=== PATIENT | male | born 1940 | race Caucasian/White ===

== ENCOUNTER → 2023-08-27 06:34 | Outpatient (REF) | payer MEDICARE, BC, SELFPAY ==
[2023-08-27 09:17] LABS: ALT (SGPT) 15 U/L (0-50); AST (SGOT) 24 U/L (17-59); Albumin 4.4 g/dl (3.5-5.0); Alkaline Phosphatase 116 U/L (38-126); Blood Urea Nitrogen 20 mg/dl (9-20); Calcium 9.9 mg/dl (8.4-10.2); Carbon Dioxide 27 mmol/L (22-30); Chloride 99 mmol/L (98-107); Glucose 101 mg/dl (70-99); HDL Cholesterol 60 mg/dl; LDL Cholesterol, Calculated 40 mg/dl; Potassium 4.3 mmol/L (3.5-5.1); Sodium 138 mmol/L (135-145); Total Bilirubin 0.7 mg/dl (0.2-1.3); Total Cholesterol 119 mg/dl (50-199); Total Protein 7.5 g/dl (6.3-8.2); Triglyceride 99 mg/dl (10-149); Very Low Density Lipoprotein 19 mg/dl (0-30); eGFR > 60.00
== END ==
LOC: REG 06:34
PROVIDERS: ATTENDING PHYSICIAN Internal Medicine Cardiovascular Disease; FAMILY PHYSICIAN Internal Medicine
DX: I10 Essential (primary) hypertension (principal); E78.5 Hyperlipidemia, unspecified
CPT/HCPCS: 36415; 80053; 80061

== ENCOUNTER → 2023-10-15 11:10 | Outpatient (REF) | payer MEDICARE, BC, SELFPAY ==
[2023-10-15 17:02] LABS: Urine Albumin Negative (Neg - Trace); Urine Bilirubin Negative (Negative); Urine Character Clear (Clear); Urine Color Yellow; Urine Glucose Negative (Negative); Urine Ketone Negative (Negative); Urine Leukocyte Negative (Negative); Urine Nitrite Negative (Negative); Urine Occult Blood Negative (Negative); Urine Urobilinogen Negative (Neg - 1+)
== END ==
LOC: CLAB 11:10
PROVIDERS: ATTENDING PHYSICIAN Nurse Practitioner Family
DX: R30.0 Dysuria (principal)
CPT/HCPCS: 81003

== ENCOUNTER → 2023-11-05 12:19 | Outpatient (REF) | payer MEDICARE, BC, SELFPAY ==
[2023-11-05 19:21] LABS: Urine Albumin Negative (Neg - Trace); Urine Bilirubin Negative (Negative); Urine Character Clear (Clear); Urine Color Yellow; Urine Glucose Negative (Negative); Urine Ketone Negative (Negative); Urine Leukocyte Negative (Negative); Urine Nitrite Negative (Negative); Urine Occult Blood Negative (Negative); Urine Urobilinogen Negative (Neg - 1+)
== END ==
LOC: CLAB 12:19
PROVIDERS: ATTENDING PHYSICIAN Internal Medicine
DX: R30.0 Dysuria (principal)
CPT/HCPCS: 81003; 87086

== ENCOUNTER → 2023-11-10 08:57 | Outpatient (REF) | payer MEDICARE, BC, SELFPAY | LOC: RAD 08:57 | PROVIDERS: ATTENDING PHYSICIAN Internal Medicine | DX: R10.31 Right lower quadrant pain (principal) | CPT/HCPCS: 74177; Q9967 ==

== ENCOUNTER 2023-11-12 09:58 | Emergency (ER) | payer MEDICARE, BC, SELFPAY ==
[2023-11-12 10:06] VITALS: BP 146/67
--- NOTE | 2023-11-12 10:16 | ED.GENMED ---
History of Present Illness
<Laura Fuentes PA-C - Last Filed: 11/12/23 11:40>
General
Chief Complaint: Abdominal Pain
Source: patient and family
Exam Limitations: none
Time Seen by Provider: 11/12/23 10:15
Nursing documentation reviewed up to this point in time: agreed with
Travel History
Have you had any contact with someone who has COVID-19?: No
Do you have any symptoms of coronavirus? Fever > 100 degrees, chills, cough, shortness of breath, sore throat, loss of taste or smell, muscle aches, or headache?: No
History of Present Illness
History of Present Illness:
This is a 82 y/o male with a PMH of aortic stenosis s/p TAVR, HTN, hyperthyroid, CVA, CHF presenting to the emergency department today with right groin pain for the past few months. Patient states that he has not had worsening pain or new symptoms.
Patient denies any nausea, vomiting, abdominal pain. Patient does note burning with urination but is had this for many months and he is being worked up by it by his primary and had recent urinalysis which was negative for any acute infection and he
is going to follow up on this with a urologist. Patient has radiation to the prostate for his prostate cancer in the past. Patient had outpatient CT done 2 days ago for his many months of groin pain which demonstrated a right bowel containing
inguinal hernia with findings that may be seen with strangulation/incarceration. Primary provider saw these findings and sent patient to emergency department for further evaluation
Past History
<Laura Fuentes PA-C - Last Filed: 11/12/23 11:40>
Past History
ED Past Medical History: Arrthythmia, CVA (TIAs), HTN, Valvular disease () and Other (Prostate biopsy)
ED Past Surgical History: Cardiac (TAVR January) and Urological
Social History
Tobacco: Non-smoker
Personal:
Living: with family
Family History
Family History: Other
Review of Systems
<Laura Fuentes PA-C - Last Filed: 11/12/23 11:40>
Review of Systems
All Other Systems: ROS reviewed and negative except as documented in HPI and ROS
Phy Exam
<Laura Fuentes PA-C - Last Filed: 11/12/23 11:40>
Physical Exam
Physical Exam:
Vitals: Patient's vital signs are stable
General: Patient is well-appearing no acute distress
Skin: Warm and dry, no rashes or lesions
Head: Normocephalic, atraumatic
Eyes: Sclera nonicteric
Cardiac: Regular rate and rhythm, no murmurs
Pulm: Normal respiratory effort
Abdomen: No abdominal tenderness to palpation
Genitourinary: No palpable mass felt around the pelvic region. No hernia appreciated within the inguinal canals bilaterally. No penile discharge.
Neuro: CN II-XII intact. No focal neurologic deficits.
Psychiatric: Appropriate mood and affect
Course
<Laura Fuentes PA-C - Last Filed: 11/12/23 11:40>
Orders/Labs/Results
Orders:
Orders
11/12/23 11:05
Complete Blood Count/With Diff Urgent
Comprehensive Metabolic Panel Urgent
Abnormal Lab Results
11/12/23
11:05
RBC 3.61 L 10^6/uL
(4.70-6.10)
Hgb 12.0 L g/dL
(13.0-18.0)
Hct 33.8 L %
(39.0-52.0)
MCH 33.2 H pg
(27.0-31.0)
Absolute Lymphs (auto) 0.6 L 10^3/uL
(1.2-3.4)
Lymphocytes % 10.8 L %
(20.5-51.1)
Monocytes % 11.0 H %
(1.7-9.3)
Sodium 130 L mmol/L
(135-145)
Chloride 93 L mmol/L
(98-107)
Glucose 107 H mg/dl
(70-99)
Alkaline Phosphatase 129 H U/L
(38-126)
11/12/23 11:05
11/12/23 11:05
Vital Signs
Initial and Last Documented VS:
Initial Vital Signs
Temp Pulse Resp BP Pulse Ox
98.6 F 57 16 146/67 97
11/12/23 10:06 11/12/23 10:06 11/12/23 10:06 11/12/23 10:06 11/12/23 10:06
Last Documented Vital Signs
Temp Pulse Resp BP Pulse Ox
98.6 F 57 16 146/67 97
11/12/23 10:06 11/12/23 10:06 11/12/23 10:06 11/12/23 10:06 11/12/23 10:06
lucian;Bernabe Adan, DO - Last Filed: 11/12/23 11:39>
Orders/Labs/Results
Orders:
Orders
11/12/23 11:05
Complete Blood Count/With Diff Urgent
Comprehensive Metabolic Panel Urgent
Abnormal Lab Results
11/12/23
11:05
RBC 3.61 L 10^6/uL
(4.70-6.10)
Hgb 12.0 L g/dL
(13.0-18.0)
Hct 33.8 L %
(39.0-52.0)
MCH 33.2 H pg
(27.0-31.0)
Absolute Lymphs (auto) 0.6 L 10^3/uL
(1.2-3.4)
Lymphocytes % 10.8 L %
(20.5-51.1)
Monocytes % 11.0 H %
(1.7-9.3)
Sodium 130 L mmol/L
(135-145)
Chloride 93 L mmol/L
(98-107)
Glucose 107 H mg/dl
(70-99)
Alkaline Phosphatase 129 H U/L
(38-126)
11/12/23 11:05
11/12/23 11:05
Vital Signs
Initial and Last Documented VS:
Initial Vital Signs
Temp Pulse Resp BP Pulse Ox
98.6 F 57 16 146/67 97
11/12/23 10:06 11/12/23 10:06 11/12/23 10:06 11/12/23 10:06 11/12/23 10:06
Last Documented Vital Signs
Temp Pulse Resp BP Pulse Ox
98.6 F 57 16 146/67 97
11/12/23 10:06 11/12/23 10:06 11/12/23 10:06 11/12/23 10:06 11/12/23 10:06
<Laura Fuentes PA-C - Last Filed: 11/12/23 11:40>
MDM/Problems Addressed
Differential Diagnosis Includes:
ddx include right inguinal hernia, musculoskeletal sprain/strain, UTI
Chronic conditions affecting care: HTN, Cancer and Other (hyperthyroidism, aortic stenosis, GERD)
Acute Exacerbation and/or Progression of Chronic Illness: HTN and Cancer
<DENICE Londono Last Filed: 11/12/23 11:40>
*Critical Care Note
Total Time (30-74mins, 75-104mins- exclusive of procedures): Not Applicable
<DENICE Londono Last Filed: 11/12/23 11:40>
Patient Management
Escalation/DeEscalation of care consider admission/obs:
This is a 82 y/o male with a PMH of aortic stenosis s/p TAVR, HTN, hyperthyroid, CVA, CHF presenting to the emergency department today with right groin pain for the past few months. Patient outpatient CT done which revealed right bowel containing
inguinal hernia with findings concerning for possible strangulation/incarceration. On physical exam, unable to appreciate any hernia. No concern for hernia incarceration or strangulation at this time patient appears comfortable, in no acute
distress, vitals are stable. Spoke to Dr. Ellis, general surgeon on-call went over CT findings with him, he is comfortable with outpatient follow-up. Patient medically stable for discharge.
ED Attending Note
<Laura Fuentes PA-C - Last Filed: 11/12/23 11:40>
-
Portions of this chart may have been created with voice recognition software.� Occasional wrong word or��sound alike� substitutions may have occurred due to the inherent limitations of voice recognition software.
<Bernabe Adan DO - Last Filed: 11/12/23 11:39>
ED Attending Note
Patient seen and examined by attending physician: Yes
I performed the substantive portion of visit, reviewed & personally made and approve the management plan that is documented in note by myself or BRANNON.: Yes
ED Attending Note:
I agreew demetrice Sanchez's note.
Pt presents with concern for incarcerated right inguinal hernia. Pt had a hernia repair in this area a couple years ago. No nausea, vomiting, constipation. No fever or chills.
Abd: soft, non-tender. Right inguinal hernia palpated but reducible. Not particularly tender.
Discharge Plan
Departure
Patient Disposition: Home (Routine Discharge)
Date of Disposition: 11/12/23
Time of Disposition: 11:33
Patient with high blood pressure during this ER visit?: Yes
Condition: Good
Discharge Problem:
Right inguinal hernia
Instructions: Groin Hernia (DC), Abdominal Pain, BLOOD PRESSURE
Prescriptions:
No Action
omeprazole 20 MG capsule,delayed release(DR/EC)
20 mg PO DAILY
aspirin 81 MG tablet,delayed release (DR/EC)
81 mg PO DAILY
simethicone [Gas-X Extra Strength] 125 MG tablet,chewable
1 tab PO BID PRN (Reason: gas) Qty: 0
Sinus Rinse
1 bottle intranasal QPM
fluticasone propionate 1 SPRAY spray,suspension
2 spray intranasal QPM PRN (Reason: Allergies)
Super B Complex
1 tab PO DAILY
methimazole 5 MG tablet
5 mg PO DAILY
metoprolol succinate 25 MG tablet extended release 24 hr
25 mg PO QPM
azelastine 1 SPRAY aerosol,spray
2 spray intranasal PRN PRN (Reason: allergies )
finasteride 5 MG tablet
5 mg PO DAILY
atorvastatin 40 MG tablet
10 mg PO QPM
tamsulosin 0.4 MG capsule
0.4 mg PO QPM
acetaminophen [Tylenol Extra Strength] 500 MG tablet
1,000 mg PO Q6HPRN PRN (Reason: pain)
Align
1 tab PO DAILY
amlodipine 2.5 mg Tablet
2.5 mg PO BID
olmesartan 20 mg Tablet
20 mg PO BID
cholecalciferol (vitamin D3) [Vitamin D3] 25 mcg (1,000 unit) Tablet
50 mcg PO BID
Beano
1 tab PO PRN PRN (Reason: .as directed )
Citrucel
1 tbsp PO BID
Eye Vision Formula 50+
1 tab PO QPM
Miralax
1 tbsp PO DAILY
Referrals:
Fran Ellis MD [Active] - Call in 1-3 days for appt
Kervin Matthews DO [Family Provider] -
Activity Restrictions/Additional Instructions:
Please call the referral number attached to schedule a follow-up appointment with the general surgeon's office.
PLEASE RETURN TO THE EMERGENCY DEPARTMENT SHOULD YOU DEVELOP FEVERS OR CHILLS, NAUSEA, OR VOMITING, ACUTE WORSENING OF YOUR PAIN, CHEST PAIN, SHORTNESS OF BREATH, SYNCOPAL EPISODES, DIZZINESS, OR ANY OTHER CONCERNING SIGNS OR SYMPTOMS.
Interventions
Interventions:
*Risk Screen - Suicide Last Done: 11/12/23 10:15
*General Assessment Last Done: 11/12/23 10:14
*Neglect/Abuse Screening Last Done: 11/12/23 10:14
*ED COVID-19 Vaccine History Last Done: 11/12/23 10:06
GK-Eqafgi-Yujebptwvg Assessment Last Done: 11/12/23 10:22
Discharge Date and Time
Print Language: SERBIAN
[2023-11-12 10:22] VITALS: BMI 24.4
[2023-11-12 11:23] LABS: % Basophils 0.9 % (0-2); % Eosinophils 5.8 % (0-6); % Immature Granulocytes 0.3 % (0-0.5); % Lymphocytes 10.8 % (20.5-51.1); % Neutrophils 71.2 % (42.2-75.2); Absolute Basophils 0.1 10^3/uL (0-0.2); Absolute Eosinophils 0.3 10^3/uL (0-0.7); Absolute Lymphocytes 0.6 10^3/uL (1.2-3.4); Absolute Monocytes 0.6 10^3/uL (0.1-0.6); Absolute Neutrophils 4.1 10^3/uL (1.4-6.5); Hematocrit 33.8 % (39.0-52.0); Mean Corp Hgb Conc. 35.5 g/dL (33.0-37.0); Mean Corpuscular Hgb 33.2 pg (27.0-31.0); Mean Corpuscular Volume 93.6 fL (80.0-94.0); Mean Platelet Volume 8.6 fL (7.4-10.4); Nucleated Red Blood Cells % 0 % (-); Platelet Count 203 10^3/uL (130-400); Red Blood Cell Count 3.61 10^6/uL (4.70-6.10); Red Cell Dist. Width 11.9 % (11.5-14.5); White Blood Cell Count 5.7 10^3/uL (4.8-10.8)
[2023-11-12 11:33] LABS: ALT (SGPT) 11 U/L (0-50); AST (SGOT) 23 U/L (17-59); Albumin 4.3 g/dl (3.5-5.0); Alkaline Phosphatase 129 U/L (38-126); Blood Urea Nitrogen 20 mg/dl (9-20); Calcium 9.4 mg/dl (8.4-10.2); Carbon Dioxide 27 mmol/L (22-30); Chloride 93 mmol/L (98-107); Estimated Creatinine Clearance 55 ml/min; Glucose 107 mg/dl (70-99); Potassium 4.4 mmol/L (3.5-5.1); Sodium 130 mmol/L (135-145); Total Bilirubin 0.6 mg/dl (0.2-1.3); Total Protein 7.1 g/dl (6.3-8.2); eGFR > 60.00
== END 2023-11-12 12:21 | disposition home or self-care (01) ==
LOC: EMR 09:58
PROVIDERS: Physician Assistant; EMERGENCY PHYSICIAN Emergency Medicine; FAMILY PHYSICIAN Internal Medicine
DX: K40.90 Unilateral inguinal hernia, without obstruction or gangrene, not specified as recurrent (principal); I11.0 Hypertensive heart disease with heart failure; I50.9 Heart failure, unspecified; E05.90 Thyrotoxicosis, unspecified without thyrotoxic crisis or storm; I35.0 Nonrheumatic aortic (valve) stenosis
CPT/HCPCS: 99283; 80053; 85025

== ENCOUNTER → 2023-11-18 08:36 | Outpatient (REF) | payer MEDICARE, BC, SELFPAY | LOC: RAD 08:36 | PROVIDERS: ATTENDING PHYSICIAN Otolaryngology Facial Plastic Surgery; FAMILY PHYSICIAN Internal Medicine | DX: R13.12 Dysphagia, oropharyngeal phase (principal); M79.2 Neuralgia and neuritis, unspecified | CPT/HCPCS: 74221 ==

== ENCOUNTER → 2023-11-27 06:37 | Outpatient (REF) | payer MEDICARE, BC, SELFPAY ==
[2023-11-27 07:03] LABS: % Basophils 1.4 % (0-2); % Eosinophils 7.7 % (0-6); % Immature Granulocytes 0.4 % (0-0.5); % Lymphocytes 18.5 % (20.5-51.1); % Monocytes 13.6 % (1.7-9.3); % Neutrophils 58.4 % (42.2-75.2); Absolute Basophils 0.1 10^3/uL (0-0.2); Absolute Eosinophils 0.4 10^3/uL (0-0.7); Absolute Lymphocytes 0.9 10^3/uL (1.2-3.4); Absolute Monocytes 0.7 10^3/uL (0.1-0.6); Absolute Neutrophils 2.9 10^3/uL (1.4-6.5); Hematocrit 35.4 % (39.0-52.0); Hemoglobin 12.2 g/dL (13.0-18.0); Mean Corp Hgb Conc. 34.5 g/dL (33.0-37.0); Mean Corpuscular Hgb 32.8 pg (27.0-31.0); Mean Corpuscular Volume 95.2 fL (80.0-94.0); Mean Platelet Volume 8.6 fL (7.4-10.4); Nucleated Red Blood Cells % 0 % (-); Platelet Count 204 10^3/uL (130-400); Red Blood Cell Count 3.72 10^6/uL (4.70-6.10); Red Cell Dist. Width 11.9 % (11.5-14.5); White Blood Cell Count 4.9 10^3/uL (4.8-10.8)
[2023-11-27 07:35] LABS: ALT (SGPT) 14 U/L (0-50); AST (SGOT) 25 U/L (17-59); Albumin 4.6 g/dl (3.5-5.0); Alkaline Phosphatase 138 U/L (38-126); Blood Urea Nitrogen 19 mg/dl (9-20); Calcium 9.8 mg/dl (8.4-10.2); Carbon Dioxide 29 mmol/L (22-30); Chloride 97 mmol/L (98-107); Creatine Phosphokinase 67 U/L (55-170); Glucose 105 mg/dl (70-99); HDL Cholesterol 67 mg/dl; LDL Cholesterol, Calculated 35 mg/dl; Potassium 4.4 mmol/L (3.5-5.1); Sodium 133 mmol/L (135-145); Total Bilirubin 0.6 mg/dl (0.2-1.3); Total Cholesterol 118 mg/dl (50-199); Total Protein 7.7 g/dl (6.3-8.2); Triglyceride 83 mg/dl (10-149); Very Low Density Lipoprotein 16 mg/dl (0-30); eGFR > 60.00
[2023-11-27 07:52] LABS: Free T4 1.12 ng/dl (0.78-2.19)
[2023-11-27 07:53] LABS: Free T3 3.38 pg/ml (2.77-5.27)
[2023-11-27 08:06] LABS: PSA, Total - Diagnostic < 0.06 ng/ml (0.0-4.0); TSH 1.58 uIU/ml (0.47-4.68)
== END ==
LOC: REG 06:37
PROVIDERS: ATTENDING PHYSICIAN Internal Medicine Endocrinology, Diabetes & Metabolism; FAMILY PHYSICIAN Internal Medicine
DX: C61 Malignant neoplasm of prostate (principal); Z86.73 Personal history of transient ischemic attack (TIA), and cerebral infarction without residual deficits; E78.2 Mixed hyperlipidemia; K58.9 Irritable bowel syndrome, unspecified; E05.90 Thyrotoxicosis, unspecified without thyrotoxic crisis or storm; E04.2 Nontoxic multinodular goiter
CPT/HCPCS: 36415; 80053; 80061; 82550; 84153; 84439; 84443; 84481; 85025

== ENCOUNTER → 2023-12-23 07:43 | Outpatient (REF) | payer MEDICARE, BC, SELFPAY | LOC: RAD 07:43 | PROVIDERS: ATTENDING PHYSICIAN Internal Medicine | DX: M85.89 Other specified disorders of bone density and structure, multiple sites (principal) | CPT/HCPCS: 77080 ==

== ENCOUNTER → 2024-01-21 06:21 | Outpatient (REF) | payer MEDICARE, BC, SELFPAY ==
[2024-01-21 08:50] LABS: Hemoglobin 12.7 g/dL (13.0-18.0); Mean Corp Hgb Conc. 33.4 g/dL (33.0-37.0); Mean Corpuscular Volume 95.7 fL (80.0-94.0); Mean Platelet Volume 9.1 fL (7.4-10.4); Platelet Count 222 10^3/uL (130-400); Red Blood Cell Count 3.97 10^6/uL (4.70-6.10); Red Cell Dist. Width 12.3 % (11.5-14.5); White Blood Cell Count 5.4 10^3/uL (4.8-10.8)
[2024-01-21 09:39] LABS: Blood Urea Nitrogen 20 mg/dl (9-20); Calcium 9.8 mg/dl (8.4-10.2); Carbon Dioxide 27 mmol/L (22-30); Chloride 97 mmol/L (98-107); Glucose 89 mg/dl (70-99); Potassium 4.7 mmol/L (3.5-5.1); Sodium 135 mmol/L (135-145); eGFR > 60.00
== END ==
LOC: SDSPAT 06:21
PROVIDERS: ATTENDING PHYSICIAN Surgery; FAMILY PHYSICIAN Internal Medicine
DX: Z01.818 Encounter for other preprocedural examination (principal)
CPT/HCPCS: 36415; 80048; 85027

== ENCOUNTER 2024-02-02 06:33 | Day surgery (SDC) | payer MEDICARE, BC, SELFPAY ==
[2024-01-21 06:32] VITALS: BMI 26.8
[2024-02-02] VITALS (11 sets, daily range): BP systolic 118–150; BP diastolic 57–72; BMI 26.8
[2024-02-02] MEDS: TYLENOL 1000 MG PO (11:03)
[2024-02-02] MEDS: NORMOSOL-R/PLASMALYTE-A 1000 IV (11:13)
--- NOTE | 2024-02-02 13:07 | HP.FOC2 ---
Focused History & Physical
Chief Complaint
HPI:
Chief Complaint: Recurrent right inguinal swelling
HPI / Indication for Planned Procedure: Patient is an 83-year-old male recently seen in outpatient surgical evaluation secondary to history of right inguinal swelling. He previously underwent open right inguinal herniorrhaphy with mesh in March
2020 with a large Ethicon Prolene hernia system mesh repair. About a year after his surgery he began taking note of right inguinal swelling which has progressively enlarged and is now quite symptomatic for him. Physical examination confirmed the
presence of a readily apparent and protuberant right inguinal hernia which is reducible in the supine position. Suspected left inguinal hernia noted as well. Recent CT imaging also appears to show bilateral direct inguinal hernias. He presents
today for scheduled operative correction.
Relevant Past Medical History: Other (History of hiatal hernia, PUD, diverticulosis, enlarged prostate, thyroid nodules, hypothyroidism, GERD, history of prostate cancer status postradiation, history of now status post TAVR are, hypertension,
CVA, chronic constipation, compression fractures)
Relevant Social History: Negative
Relevant Family History: Negative
Relevant Past Surgical History: Positive for (Repair left ankle, left trigger finger, prostate biopsies, cataracts, right salivary gland removed, TAVR, open right inguinal hernia repair, Mohs)
Review of Systems
Review of Pertinent Systems: All Systems Negative
Medication
See Medication form for detailed medications: Yes
Medication List (including Herbals & OTC):
aspirin 81 mg tablet,delayed release 81 mg PO DAILY Blood clot prevention/tx 01/31/20
omeprazole 20 mg capsule,delayed release 20 mg PO DAILY Gastrointestinal issue 01/31/20
Sinus Rinse 1 bottle intranasal QPM 02/21/20
Super B Complex 1 tab PO DAILY Supplement 02/21/20
fluticasone propionate 50 mcg/actuation nasal spray,suspension 2 spray intranasal QPM PRN Allergies 02/21/20
simethicone 125 mg chewable tablet (Gas-X Extra Strength) 1 tab PO BID PRN gas ##0 02/21/20
atorvastatin 40 mg tablet 10 mg PO QPM 11/07/20
azelastine 137 mcg (0.1 %) nasal spray 2 spray intranasal PRN PRN allergies 11/07/20
finasteride 5 mg tablet 5 mg PO DAILY 11/07/20
methimazole 5 mg tablet 5 mg PO DAILY 11/07/20
metoprolol succinate 25 mg tablet,extended release 24 hr 25 mg PO QPM 11/07/20
tamsulosin 0.4 mg capsule 0.4 mg PO BID 11/07/20
acetaminophen 500 mg tablet (Tylenol Extra Strength) 1,000 mg PO Q6HPRN PRN pain 04/19/21
Align 1 tab PO DAILY 11/12/23
Beano 1 tab PO PRN PRN .as directed 11/12/23
Citrucel 1 tbsp PO BID 11/12/23
Eye Vision Formula 50+ 1 tab PO QPM 11/12/23
Miralax 1 tbsp PO DAILY 11/12/23
amlodipine 2.5 mg tablet 2.5 mg PO BID 11/12/23
cholecalciferol (vitamin D3) 25 mcg (1,000 unit) tablet (Vitamin D3) 25 mcg PO BID 11/12/23
olmesartan 20 mg tablet 20 mg PO BID 11/12/23
desonide 0.05 % topical ointment 1 applic topical BID PRN skin irritation 01/23/24
hydrocortisone 2.5 % topical cream 1 applic topical BID PRN hemorrhoids 01/23/24
Medications Reviewed: Yes
Allergies and Reactions
Patient has Allergies: Yes
Noted Allergies and Reactions:
Allergy/AdvReac Type Severity Reaction Status Date / Time
pollen extracts Allergy congestion Verified 02/02/24 10:43
in
sinuses;sneezing
Pertinent Physical Exam
All Other Systems: Negative
Head/Neck: Normal
Lungs: Normal
Heart: Normal
Abdomen: Other (Bilateral inguinal hernias, right inguinal scar)
Extremities: Normal
Neurological: Normal
Diagnosis / Assessment
83-year-old male presenting for scheduled operative correction recurrent right inguinal hernia and initial left inguinal hernia.
Plan / Procedure
Robotic assisted laparoscopic repair of bilateral inguinal hernias with mesh
Anesthesia/Sedation to be done by Anesthesia Provider: Yes
--- NOTE | 2024-02-02 13:12 | W.SUR.PREOP ---
Pre-Operative Surgical Note
-
I have examined this patient prior to the performance of the scheduled procedure.
The patient's condition is unchanged from the time of the current History and
Physical and the patient is able to undergo the scheduled procedure.
--- NOTE | 2024-02-02 16:04 | W.IMMPOSTOP ---
Addendum entered and electronically signed by Carlos Owens MD 02/04/24 09:47:
#[id number]
Original Note:
Surgical Immed Post Op Note
-
Primary Surgeon: Graciela
Assisting Surgeon: Meryl Leos PA-c
Pre-op Diagnosis: Bilateral inguinal hernias
Post-op Diagnosis: Bilateral inguinal hernias; right recurrent direct, left direct
Procedure Performed: RAL YULIYA repair bilateral inguinal hernias with mesh; 3D max large regular weight x 2
Anesthesia Type: GETA +0.25% Marcaine
Specimen / Cultures: None
Estimated Blood Loss: 6 mL
Complications: None immediate
Operative Findings: Recurrent right direct inguinal hernia. Preperitoneal portion of previously placed PHS-L mesh covering indirect but not direct space -did not disturb this mesh. 3D max regular weight large mesh repair. Left direct inguinal
hernia. 3D max regular weight large mesh repair. No additional notable intra-abdominal findings.
The assistance of Meryl Leos PA-C was required due to the complexity of the procedure. During the procedure Meryl Leos PA-C assisted with port placement, robotic instrumentation and suture material exchanges, and closure of the surgical incision
sites. I was present for the entirety of the operative procedure.
[2024-02-02] MEDS: DILAUDID 0.25 MG IV (16:48)
--- NOTE | 2024-02-02 17:27 | SUR.PHASEI ---
patient with minimal pain in pacu - treated with Dilaudid 0.25mg with relief, vss, Sats good in pacu - patient normally wears CPAP at night - encouraged to use CPAP with any rest periods tonight.
== END 2024-02-02 17:49 | disposition home or self-care (01) ==
LOC: SDS 06:33
PROVIDERS: ATTENDING PHYSICIAN Surgery
DX: K40.91 Unilateral inguinal hernia, without obstruction or gangrene, recurrent (principal); K40.90 Unilateral inguinal hernia, without obstruction or gangrene, not specified as recurrent
CPT/HCPCS: 49651; 49650; C1781

== ENCOUNTER → 2024-02-13 06:27 | Outpatient (REF) | payer MEDICARE, BC, SELFPAY ==
[2024-02-13 08:15] LABS: Vitamin D, 25-OH*** 76.8 ng/mL (30-80)
[2024-02-13 08:19] LABS: Calcium 9.6 mg/dl (8.4-10.2); Phosphorus 3.9 mg/dl (2.5-4.5)
[2024-02-13 09:31] LABS: 24 Hour Urine Total Volume 2000 ml; Urine Calcium 10.3 mg/dl
[2024-02-14 08:56] LABS: Intact PTH 21.4 pg/ml (13.6-85.8)
[2024-02-15 02:00] LABS: % Free Testosterone 0.8 % (1.6-2.9); Free Testosterone 11 pg/mL (47-244); Sex Hormone Binding Globulin 96 nmol/L (19-76); Total Testosterone 138 ng/dL (300-720)
[2024-02-16 02:01] LABS: IgA 495 mg/dl (70-400)
[2024-02-16 06:52] LABS: Endomysial IgA Antibody Titer <1:10 (<1:10)
[2024-02-16 09:41] LABS: 24 Hour Urine Total Volume 2000 mL; Creatinine, Urine 24 Hour 1300 mg/d (600-2000); Creatinine, Urine per Volume 65 mg/dL; Urine Collection Length 24 hr
== END ==
LOC: REG 06:27
PROVIDERS: ATTENDING PHYSICIAN Physician Assistant; FAMILY PHYSICIAN Internal Medicine
DX: C61 Malignant neoplasm of prostate (principal); E21.5 Disorder of parathyroid gland, unspecified; E27.8 Other specified disorders of adrenal gland; E55.9 Vitamin D deficiency, unspecified; E83.30 Disorder of phosphorus metabolism, unspecified; K90.0 Celiac disease; M81.0 Age-related osteoporosis without current pathological fracture; R82.994 Hypercalciuria; S22.000A Wedge compression fracture of unspecified thoracic vertebra, initial encounter for closed fracture
CPT/HCPCS: 36415; 81050; 82306; 82340; 82530; 82784; 83516; 83970; 84100; 84155; 84165; 84270; 84402; 84403; 86231

== ENCOUNTER → 2024-05-26 06:52 | Outpatient (REF) | payer MEDICARE, BC, SELFPAY ==
[2024-05-26 08:00] LABS: % Basophils 1.2 % (0-2); % Eosinophils 9.6 % (0-6); % Immature Granulocytes 0.2 % (0-0.5); % Lymphocytes 18.7 % (20.5-51.1); % Monocytes 11.1 % (1.7-9.3); % Neutrophils 59.2 % (42.2-75.2); Absolute Basophils 0.1 10^3/uL (0-0.2); Absolute Eosinophils 0.6 10^3/uL (0-0.7); Absolute Lymphocytes 1.1 10^3/uL (1.2-3.4); Absolute Monocytes 0.7 10^3/uL (0.1-0.6); Absolute Neutrophils 3.5 10^3/uL (1.4-6.5); Hematocrit 36.1 % (39.0-52.0); Hemoglobin 12.2 g/dL (13.0-18.0); Mean Corp Hgb Conc. 33.8 g/dL (33.0-37.0); Mean Corpuscular Hgb 31.7 pg (27.0-31.0); Mean Corpuscular Volume 93.8 fL (80.0-94.0); Mean Platelet Volume 8.8 fL (7.4-10.4); Nucleated Red Blood Cells % 0 % (-); Platelet Count 248 10^3/uL (130-400); Red Blood Cell Count 3.85 10^6/uL (4.70-6.10); Red Cell Dist. Width 12.8 % (11.5-14.5); White Blood Cell Count 5.9 10^3/uL (4.8-10.8)
[2024-05-26 08:07] LABS: Urine Albumin Negative (Neg - Trace); Urine Bilirubin Negative (Negative); Urine Character Clear (Clear); Urine Color Yellow; Urine Glucose Negative (Negative); Urine Ketone Negative (Negative); Urine Leukocyte Negative (Negative); Urine Nitrite Negative (Negative); Urine Occult Blood Negative (Negative); Urine Urobilinogen Negative (Neg - 1+)
[2024-05-26 08:34] LABS: ALT (SGPT) 14 U/L (0-50); AST (SGOT) 24 U/L (17-59); Albumin 4.7 g/dl (3.5-5.0); Alkaline Phosphatase 127 U/L (38-126); Blood Urea Nitrogen 19 mg/dl (9-20); Calcium 9.3 mg/dl (8.4-10.2); Carbon Dioxide 28 mmol/L (22-30); Chloride 98 mmol/L (98-107); Glucose 105 mg/dl (70-99); HDL Cholesterol 73 mg/dl; LDL Cholesterol, Calculated 35 mg/dl; Sodium 137 mmol/L (135-145); Total Bilirubin 0.4 mg/dl (0.2-1.3); Total Cholesterol 128 mg/dl (50-199); Total Protein 7.5 g/dl (6.3-8.2); Triglyceride 101 mg/dl (10-149); Very Low Density Lipoprotein 20 mg/dl (0-30); eGFR > 60.00
[2024-05-26 08:45] LABS: Free T4 0.99 ng/dl (0.78-2.19); Vitamin D, 25-OH*** 73.3 ng/mL (30-80)
[2024-05-26 08:59] LABS: PSA, Total - Diagnostic < 0.06 ng/ml (0.0-4.0); TSH 3.15 uIU/ml (0.47-4.68)
[2024-05-26 09:27] LABS: Glycohemoglobin (HgbA1c) 5.9 % (4.0-5.6)
== END ==
LOC: RAD 06:52
PROVIDERS: ATTENDING PHYSICIAN Nurse Practitioner Adult Health; FAMILY PHYSICIAN Internal Medicine; REFERRING PHYSICIAN Family Medicine Geriatric Medicine
DX: R91.8 Other nonspecific abnormal finding of lung field (principal); Z79.899 Other long term (current) drug therapy; R74.8 Abnormal levels of other serum enzymes; E87.8 Other disorders of electrolyte and fluid balance, not elsewhere classified; R79.89 Other specified abnormal findings of blood chemistry; M81.0 Age-related osteoporosis without current pathological fracture; E05.90 Thyrotoxicosis, unspecified without thyrotoxic crisis or storm; I10 Essential (primary) hypertension; E78.2 Mixed hyperlipidemia; C61 Malignant neoplasm of prostate
CPT/HCPCS: 36415; 71250; 80053; 80061; 81003; 82306; 83036; 84153; 84439; 84443; 85025

== ENCOUNTER → 2024-08-19 06:19 | Outpatient (REF) | payer MEDICARE, BC, SELFPAY ==
[2024-08-19 07:38] LABS: ALT (SGPT) 14 U/L (0-50); AST (SGOT) 23 U/L (17-59); Albumin 4.5 g/dl (3.5-5.0); Alkaline Phosphatase 101 U/L (38-126); Blood Urea Nitrogen 19 mg/dl (9-20); Calcium 9.6 mg/dl (8.4-10.2); Carbon Dioxide 30 mmol/L (22-30); Chloride 97 mmol/L (98-107); Glucose 100 mg/dl (70-99); Potassium 4.3 mmol/L (3.5-5.1); Sodium 133 mmol/L (135-145); Total Bilirubin 0.4 mg/dl (0.2-1.3); Total Protein 7.5 g/dl (6.3-8.2); eGFR > 60.00
== END ==
LOC: REG 06:19
PROVIDERS: ATTENDING PHYSICIAN Internal Medicine; FAMILY PHYSICIAN Internal Medicine
DX: E55.9 Vitamin D deficiency, unspecified (principal); M81.0 Age-related osteoporosis without current pathological fracture
CPT/HCPCS: 36415; 80053; 82306

== ENCOUNTER → 2024-09-22 06:49 | Outpatient (REF) | payer MEDICARE, BC, SELFPAY | LOC: RAD 06:49 | PROVIDERS: ATTENDING PHYSICIAN Internal Medicine | DX: R10.31 Right lower quadrant pain (principal) | CPT/HCPCS: 74177; Q9967 ==

== ENCOUNTER 2024-11-15 06:35 | Outpatient (RCR) | payer MEDICARE, BC, SELFPAY | END 2024-11-15 23:59 | disposition home or self-care (01) | LOC: RST 06:35 | PROVIDERS: ATTENDING PHYSICIAN Otolaryngology Facial Plastic Surgery; FAMILY PHYSICIAN Family Medicine | DX: R13.12 Dysphagia, oropharyngeal phase (principal) | CPT/HCPCS: 92610 ==

== ENCOUNTER → 2024-11-29 06:39 | Outpatient (REF) | payer MEDICARE, BC, SELFPAY ==
[2024-11-29 08:31] LABS: Urine Albumin Negative (Neg - Trace); Urine Bilirubin Negative (Negative); Urine Character Clear (Clear); Urine Color Yellow; Urine Glucose Negative (Negative); Urine Ketone Negative (Negative); Urine Leukocyte Negative (Negative); Urine Nitrite Negative (Negative); Urine Occult Blood Negative (Negative); Urine Urobilinogen Negative (Neg - 1+)
[2024-11-29 08:48] LABS: % Eosinophils 7.3 % (0-6); % Immature Granulocytes 0.4 % (0-0.5); % Lymphocytes 20.9 % (20.5-51.1); % Monocytes 14.8 % (1.7-9.3); % Neutrophils 55.6 % (42.2-75.2); Absolute Basophils 0.1 10^3/uL (0-0.2); Absolute Eosinophils 0.4 10^3/uL (0-0.7); Absolute Monocytes 0.7 10^3/uL (0.1-0.6); Absolute Neutrophils 2.8 10^3/uL (1.4-6.5); Hematocrit 35.7 % (39.0-52.0); Hemoglobin 12.4 g/dL (13.0-18.0); Mean Corp Hgb Conc. 34.7 g/dL (33.0-37.0); Mean Corpuscular Hgb 33.5 pg (27.0-31.0); Mean Corpuscular Volume 96.5 fL (80.0-94.0); Mean Platelet Volume 9.2 fL (7.4-10.4); Nucleated Red Blood Cells % 0 % (-); Platelet Count 239 10^3/uL (130-400); Red Cell Dist. Width 12.8 % (11.5-14.5); White Blood Cell Count 4.9 10^3/uL (4.8-10.8)
[2024-11-29 09:09] LABS: ALT (SGPT) 15 U/L (0-50); AST (SGOT) 23 U/L (17-59); Albumin 4.5 g/dl (3.5-5.0); Alkaline Phosphatase 91 U/L (38-126); Blood Urea Nitrogen 19 mg/dl (9-20); Calcium 9.7 mg/dl (8.4-10.2); Carbon Dioxide 28 mmol/L (22-30); Chloride 101 mmol/L (98-107); Glucose 101 mg/dl (70-99); HDL Cholesterol 72 mg/dl; LDL Cholesterol, Calculated 48 mg/dl; Phosphorus 3.6 mg/dl (2.5-4.5); Potassium 4.4 mmol/L (3.5-5.1); Sodium 139 mmol/L (135-145); Total Bilirubin 0.6 mg/dl (0.2-1.3); Total Cholesterol 141 mg/dl (50-199); Total Protein 7.6 g/dl (6.3-8.2); Triglyceride 106 mg/dl (10-149); Very Low Density Lipoprotein 21 mg/dl (0-30); eGFR > 60.00
[2024-11-29 09:21] LABS: Free T3 3.65 pg/ml (2.77-5.27)
[2024-11-29 09:34] LABS: TSH Reflex To Free T4 2.02 uIU/ml (0.47-4.68)
== END ==
LOC: REG 06:39
PROVIDERS: ATTENDING PHYSICIAN Internal Medicine Endocrinology, Diabetes & Metabolism; FAMILY PHYSICIAN Internal Medicine
DX: E05.90 Thyrotoxicosis, unspecified without thyrotoxic crisis or storm (principal); I10 Essential (primary) hypertension; E78.5 Hyperlipidemia, unspecified; I35.0 Nonrheumatic aortic (valve) stenosis; Z00.00 Encounter for general adult medical examination without abnormal findings
CPT/HCPCS: 36415; 80053; 80061; 81003; 84100; 84443; 84481; 85025

== ENCOUNTER → 2024-12-09 08:16 | Outpatient (REF) | payer MEDICARE, BC, SELFPAY | LOC: HWRCS 08:16 | PROVIDERS: ATTENDING PHYSICIAN Internal Medicine Cardiovascular Disease; FAMILY PHYSICIAN Internal Medicine | DX: Z95.2 Presence of prosthetic heart valve (principal); I10 Essential (primary) hypertension; R00.2 Palpitations | CPT/HCPCS: 93306 ==

== ENCOUNTER → 2025-02-08 06:28 | Outpatient (REF) | payer MEDICARE, BC, SELFPAY ==
[2025-02-08 07:47] LABS: ALT (SGPT) 14 U/L (0-50); AST (SGOT) 19 U/L (17-59); Albumin 4.6 g/dl (3.5-5.0); Alkaline Phosphatase 95 U/L (38-126); Blood Urea Nitrogen 16 mg/dl (9-20); Calcium 9.5 mg/dl (8.4-10.2); Carbon Dioxide 27 mmol/L (22-30); Chloride 105 mmol/L (98-107); Glucose 105 mg/dl (70-99); Potassium 4.4 mmol/L (3.5-5.1); Sodium 139 mmol/L (135-145); Total Protein 7.6 g/dl (6.3-8.2); eGFR > 60.00
== END ==
LOC: REG 06:28
PROVIDERS: ATTENDING PHYSICIAN Internal Medicine Rheumatology; FAMILY PHYSICIAN Internal Medicine
DX: M81.0 Age-related osteoporosis without current pathological fracture (principal)
CPT/HCPCS: 36415; 80053

== ENCOUNTER 2025-04-04 04:16 | Emergency (ER) | payer MEDICARE, BC, SELFPAY ==
[2025-04-04 04:19] VITALS: BP 164/76
[2025-04-04 04:46] VITALS: BP 158/81; BMI 26.4
--- NOTE | 2025-04-04 04:49 | ED.GENMED ---
History of Present Illness
General
Chief Complaint: Heart Rate Problem
Source: patient, spouse, previous radiology exam and previous hospital records
Exam Limitations: none
Time Seen by Provider: 04/04/25 04:33
Nursing documentation reviewed up to this point in time: agreed with
History of Present Illness
History of Present Illness:
The patient is an 84-year-old male who presented with complaints of irregular heartbeat primarily noticed at night. The patient described the sensation as a heart racing or skipping beats, which was particularly worse the previous night. He reported
experiencing episodes of heart palpitations at night several times in the past and was evaluated by a spine surgeon, Dr. Barcenas, around October. At that time, an event monitor was worn for a week, but no significant findings were reported by the
spine surgeon. Echocardiogram November of this year, normal LV chamber size, normal LV function with EF of 60%. Mild to moderate MR. Well-seated aortic valve replacement. No aortic regurgitation. Similar and unchanged from previous September 2022.
The patient continues to experience these irregular heartbeats more prominently at night, although they occur throughout the day without him being aware. He denies any associated chest pain or shortness of breath. There are no recent changes in
medication or diagnosis of new conditions.
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 Hyperthyroidism, managed
with regular monitoring by Dr. López. The patient has undergone thyroid function tests in November with results reported as normal. He has history of 'chronic congestion' maintained on twice daily inhaler. No history of CHF. No change in weight.
He denies leg pain or swelling.
Along with intermittent palpitations tonight patient noted elevated blood pressure with systolic of 180, improved to 170 and then 160 prior to arrival. He denies headache, no dizziness nor lightheadedness, no weakness. No recent change in
medications.
Currently asymptomatic. No palpitations.
Past History
Past History
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
Hyperthyroidism and Other (Obstructive sleep apnea-uses CPAP)
ED Past Surgical History: Cardiac (TAVR January) and Urological
Social History
Tobacco: Former smoker
Alcohol: None
Drug: None
Personal:
Living: with family
Employment: Retired
Family History
Family History: Other (Noncontributory)
Phy Exam
Physical Exam
Physical Exam:
GENERAL: 84-year-old gentleman appears his stated age, awake and alert, pleasant, appears in no acute distress. is accompanying.
EYE: anicteric
NECK: Supple, nontender, no meningismus, no significant adenopathy. No JVD.
ENT: oral mucosa is moist. No rhinorrhea.
CARDIAC: Regular rate and rhythm. Occasional ectopy, no murmur.
LUNGS: Clear breath sounds bilaterally, no acute respiratory distress, no wheezes/rales/rhonchi
ABDOMEN: Soft, nondistended, without focal tenderness, normoactive BS.
NEUROLOGICAL: Alert and oriented x3, no focal neuro deficits.
SKIN: Warm and dry, normal color, skin intact. No rash.
MUSCULOSKELETAL: No C/C/E. peripheral pulses are full and equal b/l. No palpable tenderness.
PSYCH: Normal and appropriate interaction.
Course
Orders/Labs/Results
Orders:
Orders
04/04/25 04:27
Electrocardiogram (*1) Urgent
Reason for Study: Palpitations
EKG- Treatment ONCE
04/04/25 04:44
Complete Blood Count/With Diff Urgent
Comprehensive Metabolic Panel Urgent
TSH Reflex To Free T4 Urgent
Troponin I Urgent
Abnormal Lab Results
04/04/25
04:44
RBC 3.78 L 10^6/uL
(4.70-6.10)
Hgb 12.3 L g/dL
(13.0-18.0)
Hct 35.8 L %
(39.0-52.0)
MCV 94.7 H fL
(80.0-94.0)
MCH 32.5 H pg
(27.0-31.0)
Absolute Lymphs (auto) 1.1 L 10^3/uL
(1.2-3.4)
Monocytes % 12.0 H %
(1.7-9.3)
Eosinophils % 9.9 H %
(0-6)
Glucose 107 H mg/dl
(70-99)
04/04/25 04:44
04/04/25 04:44
Vital Signs
Initial and Last Documented VS:
Initial Vital Signs
Temp Pulse Resp BP Pulse Ox
98.4 F 63 20 164/76 96
04/04/25 04:19 04/04/25 04:19 04/04/25 04:19 04/04/25 04:19 04/04/25 04:19
Last Documented Vital Signs
Temp Pulse Resp BP Pulse Ox
98.4 F 59 12 151/77 97
04/04/25 04:19 04/04/25 05:45 04/04/25 05:45 04/04/25 05:00 04/04/25 05:45
MDM/Problems Addressed
Differential Diagnosis Includes:
The Differential Diagnosis includes, in no particular order and is not limited to:
1. Atrial Fibrillation
2. Premature Ventricular Contractions
3. Paroxysmal Supraventricular Tachycardia
4. Sinus Arrhythmia
5. Hyperthyroidism-induced arrhythmias
6. Anxiety or Stress
7. Chronic Obstructive Pulmonary Disease
8. Congestive Heart Failure
9. Ischemic Heart Disease
10. Mitral Valve Prolapse
MDM/Problems Addressed:
Acute Problems:
- Irregular heartbeats/palpitations.
Chronic Problems:
- Hyperthyroidism; hypertension, aortic stenosis/history of TAVR 2019, history of hyperthyroid nodules.
- Chronic lung congestion.
Patient is asymptomatic since arrival to the ED.
EKG shows normal sinus rhythm, left axis deviation, LVH, no acute ST-T wave abnormalities. Similar and unchanged from previous EKG October 2020.
alarm security or surveillance monitor shows normal sinus rhythm with PACs. I suspect PACs are cause for patient's intermittent palpitations. Must consider intermittent tacky arrhythmia however so we will continue hospital monitor.
Was noted to have elevated blood pressure at home. Systolic blood pressure improving.
Will check labs including troponin, TSH with reflex to free T4.
Will continue hospital monitor.
*Pulse Oximetry
SaO2: 99
Oxygen Mode of Delivery: Room air
Patient hypoxic: no
*EKG
Interpreted by ED Provider?: Yes
Comparison EKG: no changes (Unchanged from previous 2020)
Rate: normal
Rhythm: sinus
[place]: left axis deviation
Interval: normal interval
QRS Pattern: poor R-wave progression and left vent hypertrophy
Ischemia: no ischemia
*Sexologist Interpretation
Rate: normal
Interpretation: normal
Rhythm: sinus and PAC's
*Critical Care Note
Total Time (30-74mins, 75-104mins- exclusive of procedures): Not Applicable
Patient Management
Social determinants of health affecting care: Strong social support
Update Note
Update Note:
05:50
Patient remains asymptomatic.
Monitor continues to show normal sinus rhythm with occasional PACs.
Labs are unremarkable, mild but stable anemia. Unremarkable chemistries. Troponin is negative. TSH is normal.
As above, I suspect his intermittent palpitations may be PACs in nature.
Recommend avoiding caffeinated beverages. Overall he reports very limited caffeine intake.
Recommend follow-up with his spine surgeon, Dr. Barcenas.
ED Attending Note
-
Portions of this chart may have been created with voice recognition software.� Occasional wrong word or��sound alike� substitutions may have occurred due to the inherent limitations of voice recognition software.
Discharge Plan
Departure
Patient Disposition: Home (Routine Discharge)
Date of Disposition: 04/04/25
Time of Disposition: 05:51
Patient with high blood pressure during this ER visit?: No
Condition: Good
Discharge Problem:
Heart palpitations, Atrial premature contractions
Instructions: Palpitations (DC)
Prescriptions:
No Action
omeprazole 20 MG capsule,delayed release(DR/EC)
20 mg PO DAILY
aspirin 81 MG tablet,delayed release (DR/EC)
81 mg PO DAILY
simethicone [Gas-X Extra Strength] 125 MG tablet,chewable
1 tab PO BID PRN (Reason: gas) Qty: 0
Sinus Rinse
1 bottle intranasal QPM
fluticasone propionate 1 SPRAY spray,suspension
2 spray intranasal QPM PRN (Reason: Allergies)
Super B Complex
1 tab PO DAILY
methimazole 5 MG tablet
5 mg PO DAILY
metoprolol succinate 25 MG tablet extended release 24 hr
25 mg PO QPM
azelastine 1 SPRAY aerosol,spray
2 spray intranasal PRN PRN (Reason: allergies )
finasteride 5 MG tablet
5 mg PO DAILY
atorvastatin 40 MG tablet
10 mg PO QPM
tamsulosin 0.4 MG capsule
0.4 mg PO BID
acetaminophen [Tylenol Extra Strength] 500 MG tablet
1,000 mg PO Q6HPRN PRN (Reason: pain)
Align
1 tab PO DAILY
amlodipine 2.5 mg Tablet
2.5 mg PO BID
olmesartan 20 mg Tablet
20 mg PO BID
cholecalciferol (vitamin D3) [Vitamin D3] 25 mcg (1,000 unit) Tablet
25 mcg PO BID
Beano
1 tab PO PRN PRN (Reason: .as directed )
Citrucel
1 tbsp PO BID
Eye Vision Formula 50+
1 tab PO BID
Miralax
1 tbsp PO DAILY
desonide 0.05 % Ointment
1 applic TOPICAL PRN PRN (Reason: skin irritation)
hydrocortisone 2.5 % Cream
1 applic TOPICAL BID PRN (Reason: hemorrhoids)
Referrals:
Levar Barcenas MD [Active, Cardiology] - Call in 1-3 days for appt
Kervin Matthews DO [Family Provider, Internal Medicine]
Interventions
Interventions:
*Risk Screen - Suicide Last Done: 04/04/25 04:19
*General Assessment Last Done: 04/04/25 04:19
*Neglect/Abuse Screening Last Done: 04/04/25 04:19
*ED- Fall Risk Assessment Last Done: 04/04/25 04:19
*ED COVID-19 Vaccine History Last Done: 04/04/25 04:19
ED- Cardiac Assessment Last Done: 04/04/25 05:44
ED- Pulmonary Assessment Last Done: 04/04/25 05:44
Discharge Date and Time
Print Language: WALLISIAN
[2025-04-04 04:51] LABS: Hematocrit 35.8 % (39.0-52.0); Hemoglobin 12.3 g/dL (13.0-18.0); Mean Corp Hgb Conc. 34.4 g/dL (33.0-37.0); Mean Corpuscular Volume 94.7 fL (80.0-94.0); Nucleated Red Blood Cells % 0 % (-); Platelet Count 194 10^3/uL (130-400); Red Cell Dist. Width 12.4 % (11.5-14.5)
[2025-04-04 05:00] VITALS: BP 151/77
[2025-04-04 05:16] LABS: ALT (SGPT) 14 U/L (0-50); AST (SGOT) 21 U/L (17-59); Albumin 4.5 g/dl (3.5-5.0); Alkaline Phosphatase 114 U/L (38-126); Blood Urea Nitrogen 19 mg/dl (9-20); Calcium 9.5 mg/dl (8.4-10.2); Carbon Dioxide 28 mmol/L (22-30); Chloride 102 mmol/L (98-107); Estimated Creatinine Clearance 50 ml/min; Glucose 107 mg/dl (70-99); Potassium 4.4 mmol/L (3.5-5.1); Sodium 136 mmol/L (135-145); Total Protein 7.6 g/dl (6.3-8.2); eGFR > 60.00
[2025-04-04 05:30] LABS: Troponin I < 0.012 ng/ml
[2025-04-04 06:00] VITALS: BP 147/76
== END 2025-04-04 06:25 | disposition home or self-care (01) ==
LOC: EMR 04:16
PROVIDERS: EMERGENCY PHYSICIAN Emergency Medicine; FAMILY PHYSICIAN Internal Medicine
DX: R00.2 Palpitations (principal); I49.1 Atrial premature depolarization; D64.9 Anemia, unspecified; I10 Essential (primary) hypertension; E78.00 Pure hypercholesterolemia, unspecified; E03.9 Hypothyroidism, unspecified; G47.33 Obstructive sleep apnea (adult) (pediatric); I35.0 Nonrheumatic aortic (valve) stenosis; K21.9 Gastro-esophageal reflux disease without esophagitis; R01.1 Cardiac murmur, unspecified; N40.0 Benign prostatic hyperplasia without lower urinary tract symptoms; M19.90 Unspecified osteoarthritis, unspecified site; Z95.2 Presence of prosthetic heart valve; Z85.46 Personal history of malignant neoplasm of prostate; Z85.828 Personal history of other malignant neoplasm of skin; Z86.73 Personal history of transient ischemic attack (TIA), and cerebral infarction without residual deficits; Z92.3 Personal history of irradiation; Z87.891 Personal history of nicotine dependence
CPT/HCPCS: 99284; 80053; 84443; 84484; 85025; 93005

== ENCOUNTER → 2025-05-10 07:36 | Outpatient (REF) | payer MEDICARE, BC, SELFPAY | LOC: HWRAD 07:36 | PROVIDERS: ATTENDING PHYSICIAN Nurse Practitioner Adult Health; FAMILY PHYSICIAN Internal Medicine | DX: R91.8 Other nonspecific abnormal finding of lung field (principal) | CPT/HCPCS: 71250 ==

== ENCOUNTER → 2025-05-25 06:34 | Outpatient (REF) | payer MEDICARE, BC, SELFPAY ==
[2025-05-25 07:20] LABS: Hematocrit 37.7 % (39.0-52.0); Hemoglobin 12.4 g/dL (13.0-18.0); Mean Corp Hgb Conc. 32.9 g/dL (33.0-37.0); Mean Corpuscular Volume 99.5 fL (80.0-94.0); Nucleated Red Blood Cells % 0 % (-); Platelet Count 237 10^3/uL (130-400); Red Cell Dist. Width 12.7 % (11.5-14.5)
[2025-05-25 07:55] LABS: ALT (SGPT) 14 U/L (0-50); AST (SGOT) 21 U/L (17-59); Albumin 4.8 g/dl (3.5-5.0); Alkaline Phosphatase 98 U/L (38-126); Blood Urea Nitrogen 18 mg/dl (9-20); Calcium 9.6 mg/dl (8.4-10.2); Carbon Dioxide 29 mmol/L (22-30); Chloride 100 mmol/L (98-107); Glucose 102 mg/dl (70-99); HDL Cholesterol 81 mg/dl; LDL Cholesterol, Calculated 34 mg/dl; Potassium 4.6 mmol/L (3.5-5.1); Sodium 134 mmol/L (135-145); Total Protein 8.0 g/dl (6.3-8.2); Very Low Density Lipoprotein 14 mg/dl (0-30); eGFR > 60.00
[2025-05-25 08:05] LABS: Vitamin D, 25-OH*** 63.9 ng/mL (30-80)
[2025-05-25 08:08] LABS: Urine Character Clear (Clear)
[2025-05-25 08:17] LABS: PSA, Total - Diagnostic < 0.06 ng/ml (0.0-4.0); TSH 2.42 uIU/ml (0.47-4.68)
[2025-05-25 09:02] LABS: Urine Red Blood Cell 0-2 /HPF (0-2); Urine Urothelial Cell 0-2 /LPF (FEW); Urine White Cell 0-2 /HPF (0-5)
== END ==
LOC: REG 06:34
PROVIDERS: ATTENDING PHYSICIAN Family Medicine Geriatric Medicine; FAMILY PHYSICIAN Internal Medicine
DX: E05.90 Thyrotoxicosis, unspecified without thyrotoxic crisis or storm (principal); I10 Essential (primary) hypertension; E78.5 Hyperlipidemia, unspecified; E55.9 Vitamin D deficiency, unspecified; C61 Malignant neoplasm of prostate; N30.40 Irradiation cystitis without hematuria
CPT/HCPCS: 36415; 80053; 80061; 81003; 81015; 82306; 84153; 84439; 84443; 85025

== ENCOUNTER → 2025-06-30 08:57 | Outpatient (REF) | payer MEDICARE, BC, SELFPAY | LOC: RSP 08:57 | PROVIDERS: ATTENDING PHYSICIAN Nurse Practitioner Adult Health; FAMILY PHYSICIAN Internal Medicine | DX: R91.8 Other nonspecific abnormal finding of lung field (principal); R05.9 Cough, unspecified | CPT/HCPCS: 88738; 94010; 94060; 94727; 94729 ==